=== PATIENT | female | born 1950 | race Caucasian/White ===

== ENCOUNTER 2016-10-04 19:05 | Emergency (ER) | payer OTHER ==
[~2016-10-04] VITALS: Ht 152.4 cm; Wt 101.0 kg
[~2016-10-04 19:05] MED LIST: ALBU8.5H3 INH; ALLO300T PO; AMIT10TA PO; CALC-10 PO; CEFD300C37 PO; CHOL100015 PO; DICL18CA PO; DICL50TA4 PO; ERGO2000 PO; ESCI10TA PO; FENO160T PO; FOLI-17 PO; FURO40TA6 PO; GABA300C10 PO; HYDR-3144 PO; HYDR-3307 PO; ICOS1CAP PO; INSU300I SC; IRON PO; LACT1CAP20 PO; LEVO125T5 PO; LEVO150T5 PO; LINA1TAB3 PO; LINA5TAB PO; LISI-167 PO; LISI40TA PO; METF500T4 PO; METH2.5T PO; METH4TAB PO; METR500T PO; OMEP20TA62 PO; POTA10TA31 PO; PRED2TAB PO; ROSU20TA PO; TIOT18CA INH; VANC125C2 PO; [UNRECOGNIZED DRUG - CODE] PO
[2016-10-04 19:07] VITALS: BP 134/94
[2016-10-04] MEDS ORDERED: LIDOCAINE 1%, 20ML ONE (21:06)
[2016-10-04] MEDS ORDERED: LIDOCAINE 1%, 20ML SQ ONE (21:30)
[2016-10-04] MEDS ORDERED: SULFAMETH./TRIMETHOPRIM DS 800MG/160MG TABLET ONE (21:40)
[2016-10-04] MEDS ORDERED: SULFAMETH./TRIMETHOPRIM DS 800MG/160MG TABLET PO ONE (22:00)
== END 2016-10-04 22:06 | disposition home or self-care (01) ==
LOC: ED 21:29
DX: L72.3 Sebaceous cyst (principal); E03.9 Hypothyroidism, unspecified; E11.9 Type 2 diabetes mellitus without complications; I10 Essential (primary) hypertension; J44.9 Chronic obstructive pulmonary disease, unspecified; Z88.6 Allergy status to analgesic agent
CPT/HCPCS: 10060; 87070; 87205

== ENCOUNTER 2018-10-09 09:54 | Emergency (ER) | payer MEDICARE, OTHER ==
[~2018-10-09] VITALS: Ht 152.4 cm; Wt 102.0 kg
[2018-10-09 09:58] VITALS: BP 129/70
== END 2018-10-09 10:36 | disposition home or self-care (01) ==
LOC: ED 10:30
DX: L03.114 Cellulitis of left upper limb (principal); S70.261A Insect bite (nonvenomous), right hip, initial encounter; S40.862A Insect bite (nonvenomous) of left upper arm, initial encounter; E11.9 Type 2 diabetes mellitus without complications; W57.XXXA Bitten or stung by nonvenomous insect and other nonvenomous arthropods, initial encounter; Y93.89 Activity, other specified; Y92.89 Other specified places as the place of occurrence of the external cause; Y99.8 Other external cause status
CPT/HCPCS: 82962; 99283

== ENCOUNTER 2019-01-28 16:21 | Emergency (ER) | payer OTHER, MEDICARE ==
[~2019-01-28] VITALS: Ht 165.1 cm; Wt 90.9 kg
[~2019-01-28 16:21] MED LIST changes: -ALBU8.5H3 INH; +ALBU8.5H8 INH; -HYDR-3144 PO; +HYDR-3245 PO; -HYDR-3307 PO; +HYDR-36 PO; +METF500T17 PO; -METF500T4 PO; -ROSU20TA PO; +ROSU20TA2 PO; -VANC125C2 PO; +VANC125C3 PO
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
== END 2019-01-28 19:00 | disposition home or self-care (01) ==
LOC: ED 18:30
DX: S60.221A Contusion of right hand, initial encounter (principal); S60.222A Contusion of left hand, initial encounter; M25.511 Pain in right shoulder; I10 Essential (primary) hypertension; E03.9 Hypothyroidism, unspecified; J44.9 Chronic obstructive pulmonary disease, unspecified; E11.9 Type 2 diabetes mellitus without complications; Z90.89 Acquired absence of other organs; Z88.6 Allergy status to analgesic agent; V49.59XA Passenger injured in collision with other motor vehicles in traffic accident, initial encounter; Y93.89 Activity, other specified; Y92.410 Unspecified street and highway as the place of occurrence of the external cause; Y99.8 Other external cause status
CPT/HCPCS: 82962; 99283

== ENCOUNTER 2019-03-18 08:35 | Outpatient (CLI) | payer MEDICARE | END 2019-03-18 23:59 | disposition home or self-care (01) | LOC: CFH 08:35 | PROVIDERS: ATTEND Internal Medicine Cardiovascular Disease | DX: Z01.810 Encounter for preprocedural cardiovascular examination (principal); I71.4 Abdominal aortic aneurysm, without rupture | CPT/HCPCS: 93978 ==

== ENCOUNTER → 2019-05-26 | Outpatient (CLI) | payer MEDICARE ==
[~2019-05-26] MED LIST changes: +REGADENOSON 0.4 MG/5 ML SYRINGE ONE
== END | disposition home or self-care (01) ==
LOC: CFH 07:23
PROVIDERS: ATTEND Internal Medicine Cardiovascular Disease
DX: Z01.810 Encounter for preprocedural cardiovascular examination (principal)
CPT/HCPCS: 78452; 93017; A9502; J2785

== ENCOUNTER → 2019-08-05 | Outpatient (CLI) | payer MEDICARE ==
[~2019-08-05] MED LIST changes: +HYDR-3246 PO; -HYDR-36 PO; -REGADENOSON 0.4 MG/5 ML SYRINGE ONE
== END | disposition home or self-care (01) ==
LOC: CVU 08:30
PROVIDERS: ATTEND Internal Medicine Cardiovascular Disease
DX: I08.0 Rheumatic disorders of both mitral and aortic valves (principal); I11.9 Hypertensive heart disease without heart failure; E78.2 Mixed hyperlipidemia
CPT/HCPCS: 93306